=== PATIENT | female | born 1960 | race Caucasian/White ===

== ENCOUNTER → 2018-03-18 08:48 | Outpatient (POV) | payer MEDICARE, SELFPAY ==
[2018-03-18 09:02] VITALS: BP 127/41; PULSE 82; RESP 18; O2SAT 98; BMI 48.9
--- NOTE | 2018-03-18 09:09 | HMH.PAINSOAP ---
[facility] Pain Management SOAP Note Subjective:: Patient is a pleasant 57-year-old white female who presents today for follow-up. Patient currently has not spinal cord stimulator and is doing well with that she reports the pain a 3 out of 10 today. Patient is here for an adjustment today. Patient is also receiving gabapentin 300 mg 1 tab p.o. 3 times daily. Patient states that her leg pain has increased a little bit and would like to increase this medication. She denies any side effects. Patient's KRISTINA #[id number] reviewed and appropriate. Patient had some increase in pain several weeks ago however it has subsided. ROS General: no recent weight change, no fever, no sleep disturbances Respiratory: no cough, no shortness of air, no recurring pulmonary infections Cardiovascular/Peripheral Vascular: No chest pain, No palpitations, no edema, no shortness of breath. Gastrointestinal: no incontinence, normal bowel movements reported Genitourinary: no incontinence Musculoskeletal: Back pain, leg pain Psychiatric: normal mood/ affect Neurological: [denies weakness in extremities], [denies balance issues] Objective:: Physical Exam General: Alert and oriented x3, no acute distress, pleasant and cooperative, [on room air] Lungs: Resps E/U, Symmetrical chest expansion, Eyes: PERRL Musculoskeletal: Flexion and extension of lumbar spine somewhat guarded secondary to pain, deep tendon reflexes normal, strength in upper and lower extremities [5/5], [abnormal gait noted] Neurological: speech clear, automatic vulcanizing lead operator equal, no gross sensory deficits Assessment:: Degenerative disc disease lumbar spine with lumbar radiculopathy Plan:: We will have her adjusted today. We will also increase her gabapentin to 300 mg 1 tab p.o. 4 times daily and give her 3 months worth of this. We will follow-up with her in 3 months and reassess her symptoms at that time. Patient's been instructed to call the office if she has any issues prior to this. Dr. Lozano is reviewed this chart and agrees with this plan of care. This note was dictated using voice recognition software and may contain errors or omissions
--- NOTE | 2018-03-18 09:12 | P.CONS_ITS ---
[facility] Pain Management SOAP Note Subjective:: Patient is a pleasant 57-year-old white female who presents today for follow-up. Patient currently has not spinal cord stimulator and is doing well with that she reports the pain a 3 out of 10 today. Patient is here for an adjustment today. Patient is also receiving gabapentin 300 mg 1 tab p.o. 3 times daily. Patient states that her leg pain has increased a little bit and would like to increase this medication. She denies any side effects. Patient's KRISTINA #[id number] reviewed and appropriate. Patient had some increase in pain several weeks ago however it has subsided. ROS General: no recent weight change, no fever, no sleep disturbances Respiratory: no cough, no shortness of air, no recurring pulmonary infections Cardiovascular/Peripheral Vascular: No chest pain, No palpitations, no edema, no shortness of breath. Gastrointestinal: no incontinence, normal bowel movements reported Genitourinary: no incontinence Musculoskeletal: Back pain, leg pain Psychiatric: normal mood/ affect Neurological: [denies weakness in extremities], [denies balance issues] Objective:: Physical Exam General: Alert and oriented x3, no acute distress, pleasant and cooperative, [on room air] Lungs: Resps E/U, Symmetrical chest expansion, Eyes: PERRL Musculoskeletal: Flexion and extension of lumbar spine somewhat guarded secondary to pain, deep tendon reflexes normal, strength in upper and lower extremities [5/5], [abnormal gait noted] Neurological: speech clear, tray setter equal, no gross sensory deficits Assessment:: Degenerative disc disease lumbar spine with lumbar radiculopathy Plan:: We will have her adjusted today. We will also increase her gabapentin to 300 mg 1 tab p.o. 4 times daily and give her 3 months worth of this. We will follow-up with her in 3 months and reassess her symptoms at that time. Patient's been instructed to call the office if she has any issues prior to this. Dr. Lozano is reviewed this chart and agrees with this plan of care. This note was dictated using voice recognition software and may contain errors or omissions
== END ==
PROVIDERS: Family Provider Family Medicine; PCP Family Medicine; Visit Provider Clinical Nurse Specialist Family Health
DX: M51.16 Intervertebral disc disorders with radiculopathy, lumbar region (principal)
CPT/HCPCS: 99213

== ENCOUNTER → 2018-10-11 13:55 | Outpatient (POV) | payer MEDICARE, SELFPAY ==
[2018-10-11 14:24] VITALS: BP 144/63; PULSE 76; RESP 22; O2SAT 97; BMI 49.8
--- NOTE | 2018-10-11 14:49 | P.CONS_ITS ---
[facility] Pain Management SOAP Note Subjective:: Patient is a pleasant 57-year-old white female who we are treating for low back pain with lumbar radicular symptoms. She has not had/[employer] spinal cord stimulator in place. She has been doing very well with her stimulator up until recently when she started to have some increasing pain in her low back and also mid back area. She does have occasional pain in her neck and shoulder. She is on gabapentin 300 mg 3 times a day. It is been 8 months since reprogramming of her stimulator. I believe she needs reprogramming of her stimulator as her pain symptoms are very positional and may be due to excessive stimulation. We will have her meet with [email or web address] for reprogramming of her stimulator. We will follow-up with her after reprogramming. Objective:: Alert and oriented x3 no acute distress. Motor strength of the upper and lower extremities is 5/5. There is no gross sensory deficit. Assessment:: Degenerative disc disease of lumbar spine with lumbar radicular symptoms. Increasing pain in the mid back and neck. Plan:: We will have her meet with [email or web address] for reprogramming of her stimulator. We will follow-up with her after reprogramming.
== END ==
PROVIDERS: PCP Family Medicine; Visit Provider Anesthesiology
DX: M51.16 Intervertebral disc disorders with radiculopathy, lumbar region (principal)
CPT/HCPCS: 99212

== ENCOUNTER → 2018-11-05 09:36 | Outpatient (POV) | payer MEDICARE, SELFPAY ==
[2018-11-05 09:53] VITALS: BP 131/63; PULSE 78; RESP 18; O2SAT 98; BMI 51.3
--- NOTE | 2018-11-05 10:21 | HMH.PAINSOAP ---
[facility] Pain Management SOAP Note Subjective:: Patient is a pleasant 57-year-old white female who presents today for follow-up of low back pain with lumbar radicular symptoms. Patient has a [employer] spinal cord stimulator in place. The states that stimulator was about 90% effective until a month ago. The stimulator was reprogrammed last month. She had not had any programming 8 months prior to that. Patient says that she was in the shower when she felt excruciating sharp stabbing pain to her right lumbar area which now is intermittent. Nothing worsens or lessens the pain. She has tried a home stretching program, as well as anti-inflammatories. She denies having any recent imaging studies. She does state that she feels like she may have pulled something loose from the stimulator. The patient is on gabapentin 300 mg 3 times daily. She rates her pain today 4 out of 10. ROS General: no recent weight change, no fever, no sleep disturbances Respiratory: no cough, no shortness of air, no recurring pulmonary infections Cardiovascular/Peripheral Vascular: No chest pain, No palpitations, no edema, no shortness of breath. Gastrointestinal: no incontinence, normal bowel movements reported Genitourinary: no incontinence Musculoskeletal: Back pain Psychiatric: normal mood/ affect, [denies depression], [denies anxiety] Neurological: [denies weakness in extremities], [denies balance issues] Objective:: Physical Exam General: Alert and oriented x3, no acute distress, pleasant and cooperative, [on room air] Lungs: Resps E/U, Symmetrical chest expansion, Eyes: PERRL Musculoskeletal: Flexion and extension of lumbar spine somewhat guarded secondary to pain, deep tendon reflexes normal, strength in upper and lower extremities [5/5], lightly antalgic gait noted Neurological: speech clear, lean consultant equal, no gross sensory deficits Assessment:: Degenerative disc disease of lumbar spine with lumbar radicular symptoms. Plan:: We will schedule the patient for a lumbar CT scan. We will increase her gabapentin from 300 mg 1 p.o. 3 times daily to 4 times daily. We will up with her after she has her CT scan done if necessary. She has been instructed to call the office if she has any issues prior to the next appointment. She has s also been instructed to continue her home stretching program, along with her anti-inflammatories. Dr. Lozano has reviewed this note and agrees with this plan of care. This note was dictated using voice recognition software and may contain errors or omissions
== END ==
PROVIDERS: PCP Family Medicine; Visit Provider Clinical Nurse Specialist Family Health
DX: M51.16 Intervertebral disc disorders with radiculopathy, lumbar region (principal)
CPT/HCPCS: 99212

== ENCOUNTER → 2018-11-12 07:30 | Outpatient (CLI) | payer MEDICARE, SELFPAY ==
--- NOTE | 2018-11-12 07:35 | CT_ITS ---
CT lumbar spine wo con INDICATION: Severe low back pain ITS.REASON: BACK PAIN ORDERING PHYSICIAN: Jessee Lozano MD PATIENT AGE: 58 years COMPARISON: None TECHNIQUE: Axial images obtained with sagittal and coronal reformats. All CT scans at the facility use one or more dose reduction, viz: automated exposure control, ma/kV adjustment per patient size (including targeted exams where dose is matched to indication, i.e. head), or iterative reconstruction technique. FINDINGS: There is normal alignment. Degenerative disc disease T11-T12. T12-L1: Mild degenerative disc disease. L1-L2: Unremarkable. L2-L3: Unremarkable. L3-L4: Mild bulging disc along with facet and ligamentum flavum hypertrophy. There is resultant narrowing of the canal at 9 mm with moderate bilateral lateral recess narrowing and mild bilateral foraminal narrowing. Facet bony hypertrophy noted at this region. L4-L5: Degenerative disc disease with bulging disc with some minimal central calcification of the bulging disc. There is moderate facet and ligamentum flavum hypertrophy with moderate bilateral lateral recess and foraminal narrowing. There is borderline canal stenosis. L5-S1: Degenerative disc disease with bulging disc and a broad-based central disc osteophyte complex along with facet and ligamentum flavum hypertrophy. There is severe bilateral lateral recess and foraminal narrowing. The foraminal narrowing is slightly greater on the right. Incidental note made of punctate right renal calculus in the mid polar region at 2 to 3 mm. IMPRESSION: 1. Abnormal CT of the lumbar spine with multilevel lumbar spondylosis with degenerative disc disease and bulging disc along with facet and ligamentum flavum hypertrophy. Please see above for detailed description at each level. There is canal stenosis at L3-L4 with borderline canal stenosis at L4-L5 2. L3-L4: Mild bulging disc along with facet and ligamentum flavum hypertrophy. There is resultant narrowing of the canal at 9 mm with moderate bilateral lateral recess narrowing and mild bilateral foraminal narrowing. Facet bony hypertrophy noted at this region. 3. L4-L5: Degenerative disc disease with bulging disc with some minimal central calcification of the bulging disc. There is moderate facet and ligamentum flavum hypertrophy with moderate bilateral lateral recess and foraminal narrowing. There is borderline canal stenosis. 4. L5-S1: Degenerative disc disease with bulging disc and a broad-based central disc osteophyte complex along with facet and ligamentum flavum hypertrophy. There is severe bilateral lateral recess and foraminal narrowing. The foraminal narrowing is slightly greater on the right.
== END ==
PROVIDERS: PCP Family Medicine; Visit Provider Anesthesiology
DX: M54.5 Low back pain (principal)
CPT/HCPCS: 72131

== ENCOUNTER → 2018-11-26 10:43 | Outpatient (POV) | payer MEDICARE, SELFPAY ==
[2018-11-26 11:04] VITALS: BP 150/74; PULSE 74; RESP 18; O2SAT 98; BMI 49.8
--- NOTE | 2018-11-26 12:14 | HMH.PAINSOAP ---
[facility] Pain Management SOAP Note Subjective:: Patient is a pleasant 57-year-old white female who presents today for follow-up of low back pain. Patient was sent for CT scan at last appointment. She has a [employer] spinal cord stimulator in place. Patient reports that she is having continued low back pain that worsens with twisting at her waist. She does feel that this pain is different than before the stimulator. She is continuing a home stretching program, along with NSAIDs. ROS General: no recent weight change, no fever, no sleep disturbances Respiratory: no cough, no shortness of air, no recurring pulmonary infections Cardiovascular/Peripheral Vascular: No chest pain, No palpitations, no edema, no shortness of breath. Gastrointestinal: no incontinence, normal bowel movements reported Genitourinary: no incontinence Musculoskeletal: Back pain Psychiatric: normal mood/ affect, [denies depression], [denies anxiety] Neurological: [denies weakness in extremities], [denies balance issues] Objective:: Physical Exam General: Alert and oriented x3, no acute distress, pleasant and cooperative, Lungs: Resps E/U, Symmetrical chest expansion, Eyes: PERRL Musculoskeletal: Flexion and extension of [lumbar] spine somewhat guarded secondary to pain, deep tendon reflexes normal, strength in upper and lower extremities [5/5], [abnormal gait noted], positive Kemps test lumbar spine Neurological: speech clear, wood heel flap inserter equal, no gross sensory deficits Assessment:: Degenerative disc disease of lumbar spine with lumbar radicular symptoms, facet arthropathy Plan:: We will schedule the patient for medial branch blocks of L3-L4, L4-L5, and L5-S1. The patient is not on any anticoagulation therapy. She we will continue home stretching program. She is also continuing NSAIDs. We will follow-up with her after her injection and reassess her symptoms at that time. She is been instructed to call the office if she has any concerns prior to her next appointment. Tai #[id number] has been reviewed and is appropriate.
--- NOTE | 2018-11-26 12:17 | P.CONS_ITS ---
[facility] Pain Management SOAP Note Subjective:: Patient is a pleasant 57-year-old white female who presents today for follow-up of low back pain. Patient was sent for CT scan at last appointment. She has a [employer] spinal cord stimulator in place. Patient reports that she is having continued low back pain that worsens with twisting at her waist. She does feel that this pain is different than before the stimulator. She is continuing a home stretching program, along with NSAIDs. ROS General: no recent weight change, no fever, no sleep disturbances Respiratory: no cough, no shortness of air, no recurring pulmonary infections Cardiovascular/Peripheral Vascular: No chest pain, No palpitations, no edema, no shortness of breath. Gastrointestinal: no incontinence, normal bowel movements reported Genitourinary: no incontinence Musculoskeletal: Back pain Psychiatric: normal mood/ affect, [denies depression], [denies anxiety] Neurological: [denies weakness in extremities], [denies balance issues] Objective:: Physical Exam General: Alert and oriented x3, no acute distress, pleasant and cooperative, Lungs: Resps E/U, Symmetrical chest expansion, Eyes: PERRL Musculoskeletal: Flexion and extension of [lumbar] spine somewhat guarded secondary to pain, deep tendon reflexes normal, strength in upper and lower extremities [5/5], [abnormal gait noted], positive Kemps test lumbar spine Neurological: speech clear, radiologic technician equal, no gross sensory deficits Assessment:: Degenerative disc disease of lumbar spine with lumbar radicular symptoms, facet arthropathy Plan:: We will schedule the patient for medial branch blocks of L3-L4, L4-L5, and L5- S1. The patient is not on any anticoagulation therapy. She we will continue home stretching program. She is also continuing NSAIDs. We will follow-up with her after her injection and reassess her symptoms at that time. She is been instructed to call the office if she has any concerns prior to her next appointment. Tai #[id number] has been reviewed and is appropriate.
== END ==
PROVIDERS: PCP Family Medicine; Visit Provider Clinical Nurse Specialist Family Health
DX: M51.16 Intervertebral disc disorders with radiculopathy, lumbar region (principal); M54.06 Panniculitis affecting regions of neck and back, lumbar region
CPT/HCPCS: 99212

== ENCOUNTER → 2019-01-07 08:47 | Outpatient (POV) | payer MEDICARE, SELFPAY ==
[2019-01-07 09:34] VITALS: BP 114/62; PULSE 67; RESP 18; O2SAT 99; BMI 49.8
--- NOTE | 2019-01-07 09:51 | HMH.PAINSOAP ---
[facility] Pain Management SOAP Note Subjective:: Patient is a pleasant 58-year-old white female who presents today for follow-up after medial branch block. Patient got 90% relief and is doing well. Her pain is beginning to slowly return. Patient has had RFA's in the past and would like to move forward with one. Her last RFA she got 80% relief for over 6 months. She is failed other measures including medication, anti-inflammatories, physical therapy. Continuing a stretching program. ROS General: no recent weight change, no fever, no sleep disturbances Respiratory: no cough, no shortness of air, no recurring pulmonary infections Cardiovascular/Peripheral Vascular: No chest pain, No palpitations, no edema, no shortness of breath. Gastrointestinal: no incontinence, normal bowel movements reported Genitourinary: no incontinence Musculoskeletal: Back pain Psychiatric: normal mood/ affect Neurological: [denies weakness in extremities], [denies balance issues] Objective:: Physical Exam General: Alert and oriented x3, no acute distress, pleasant and cooperative, [on room air] Lungs: Resps E/U, Symmetrical chest expansion, Eyes: PERRL Musculoskeletal: Flexion and extension of lumbar spine somewhat guarded secondary to pain, deep tendon reflexes normal, strength in upper and lower extremities [5/5], slightly antalgic gait noted, positive Encarnacion test and facet loading positive bilateral lumbar spine Neurological: speech clear, human resources benefits specialist equal, no gross sensory deficits Assessment:: Degenerative disc disease lumbar spine with lumbar spondylosis and facet arthropathy lumbar spine Plan:: We will set it RFA up for the patient at L3-L4 L4-L5 L5-S1 bilaterally we will start with right-sided in 2 weeks we will do the left side. Patient is not on any anticoagulation therapy. She had good success with this therapy in the past. I will follow-up the patient after this reassess her symptoms at that time. Dr. Lozano has reviewed this note and agrees with this plan of care. This note was dictated using voice recognition software and may contain errors or omissions Pain Management Hx Components *Have you ever received a pneumonia vaccine?: Yes *Have you received a flu vaccine this season?: Yes - *Social History *Occupational Status:: other *Travel in the last 8 weeks: None
--- NOTE | 2019-01-07 09:54 | P.CONS_ITS ---
[facility] Pain Management SOAP Note Subjective:: Patient is a pleasant 58-year-old white female who presents today for follow-up after medial branch block. Patient got 90% relief and is doing well. Her pain is beginning to slowly return. Patient has had RFA's in the past and would like to move forward with one. Her last RFA she got 80% relief for over 6 months. She is failed other measures including medication, anti-inflammatories, physical therapy. Continuing a stretching program. ROS General: no recent weight change, no fever, no sleep disturbances Respiratory: no cough, no shortness of air, no recurring pulmonary infections Cardiovascular/Peripheral Vascular: No chest pain, No palpitations, no edema, no shortness of breath. Gastrointestinal: no incontinence, normal bowel movements reported Genitourinary: no incontinence Musculoskeletal: Back pain Psychiatric: normal mood/ affect Neurological: [denies weakness in extremities], [denies balance issues] Objective:: Physical Exam General: Alert and oriented x3, no acute distress, pleasant and cooperative, [on room air] Lungs: Resps E/U, Symmetrical chest expansion, Eyes: PERRL Musculoskeletal: Flexion and extension of lumbar spine somewhat guarded secondary to pain, deep tendon reflexes normal, strength in upper and lower extremities [5/5], slightly antalgic gait noted, positive Encarnacion test and facet loading positive bilateral lumbar spine Neurological: speech clear, tar kettle runner equal, no gross sensory deficits Assessment:: Degenerative disc disease lumbar spine with lumbar spondylosis and facet arthropathy lumbar spine Plan:: We will set it RFA up for the patient at L3-L4 L4-L5 L5-S1 bilaterally we will start with right-sided in 2 weeks we will do the left side. Patient is not on any anticoagulation therapy. She had good success with this therapy in the past. I will follow-up the patient after this reassess her symptoms at that time. Dr. Lozano has reviewed this note and agrees with this plan of care. This note was dictated using voice recognition software and may contain errors or omissions Pain Management Hx Components *Have you ever received a pneumonia vaccine?: Yes *Have you received a flu vaccine this season?: Yes - *Social History *Occupational Status:: other *Travel in the last 8 weeks: None
== END ==
PROVIDERS: PCP Family Medicine; Visit Provider Clinical Nurse Specialist Family Health
DX: M51.36 Other intervertebral disc degeneration, lumbar region (principal); M47.896 Other spondylosis, lumbar region; M54.06 Panniculitis affecting regions of neck and back, lumbar region
CPT/HCPCS: 99212

== ENCOUNTER 2020-06-05 14:01 | Observation (INO) | payer MEDICARE, SELFPAY ==
[2020-06-05] VITALS (14 sets, daily range): BP systolic 123–175; BP diastolic 70–99; PULSE 60–76; RESP 16–20; TEMP 36.8–37.1; O2SAT 94–98; BMI 51.3; BMI 50.3
--- NOTE | 2020-06-05 14:01 | ECG_ITS ---
APPROVED REPORT Exam: Resting ECG HR:73 bpm ECG Measurements Heart Rate 73 AXES RI 162 P 55 QRSd 80 QRS 1 QT 400 T 21 QTc 440 Conclusion Sinus rhythm with occasional premature ventricular complexes Left atrial abnormality Left ventricular hypertrophy Late R wave progression Abnormal ECG Electronically signed by : Eugene Duffy, 06/06/2020 13:36:29
--- NOTE | 2020-06-05 14:15 | XR_ITS ---
PROCEDURE: XR CHEST 2V CLINICAL HISTORY: chest pain COMPARISON: No exams were available for comparison FINDINGS: The lung gordillo are well expanded and appear clear of infiltrate. There is mild generalized cardiomegaly however the vascularity is normal and there is no pleural fluid. There are moderate multilevel degenerate changes of the thoracic spine. There is a neurostimulator electrode seen within the mid spinal canal IMPRESSION: Mild cardiomegaly, no acute chest pathology noted Dictated by: Dr. Sohail Mason MD 06/05/2020 17:18 Dr. Sohail Mason MD in [place] 06/05/2020 17:18
[2020-06-05 14:32] LABS: Basophils # 0.1 K/mm3 (0-0.2); Basophils % 1.3 % (0.1-2.0); Eosinophils # 0.2 K/mm3 (0.0-0.4); Eosinophils % 3.8 % (0.1-12.0); Hematocrit 42.1 % (37.0-47.0); Hemoglobin 13.5 g/dL (12.2-16.2); Lymphocytes # 1.7 K/mm3 (0.7-4.5); Mean Corpuscular HGB Conc 32.1 g/dL (31.8-35.4); Mean Corpuscular Hemoglobin 28.9 pg (27.0-31.2); Mean Corpuscular Volume 89.9 fl (81-99); Mean Platelet Volume 7.3 fl (7.4-10.4); Monocytes # 0.2 K/mm3 (0.1-1.0); Monocytes % 4.3 % (1.7-9.3); Neutrophils # 3.3 K/mm3 (1.8-7.8); Neutrophils % 59.6 % (37.0-80.0); Platelet Count 183 K/mm3 (142-424); Red Blood Count 4.69 M/mm3 (4.20-5.40); Red Cell Distribution Width 14.5 % (11.5-17.5); White Blood Count 5.6 K/mm3 (4.8-10.8)
--- NOTE | 2020-06-05 14:41 | HMH.EDGENADL ---
ED Disposition Clinical Impression: Angina pectoris Disposition: Admitted as Observation Condition on Discharge: Good - Critical Care Critical Care Time: No Attestation: On 06/05/20, the high probability of a clinically significant, sudden or life threatening deterioration of the following system(s) required my full and direct attention, intervention and personal management. The time I documented below is in addition to time spent performing reported procedures but includes the following listed in this critical care notation. Medical Decision Making - Medical Records Medical records reviewed: Yes: I reviewed the patient's medical records. MR Comment: Reviewed nuclear stress test report from [facility]. Possible anteroseptal ischemia seen in short axis images only, clinical correlation is advised. - Tai Inquiry Pt receiving controlled substance: No Vital Signs: 06/05/20 14:02 06/05/20 15:07 06/05/20 15:23 Temperature 98.2 F Temperature Source Oral Pulse Rate [Right] 70 70 72 Respiratory Rate 16 20 20 Blood Pressure [Right Arm] 175/90 H 173/99 H 149/91 H Blood Pressure Mean [Right Arm] 118 123 110 Blood Pressure Source [Right Arm] Automatic Cuff Automatic Cuff Blood Pressure Position [Right Arm] Sitting Supine 02 Sat by Pulse Oximetry 95 98 95 Oxygen Delivery Method Room Air Room Air Room Air 06/05/20 15:30 06/05/20 15:59 06/05/20 16:57 Temperature Temperature Source Pulse Rate [Right] 76 72 76 Respiratory Rate 20 20 20 Blood Pressure [Right Arm] 166/88 H 148/92 H 164/95 H Blood Pressure Mean [Right Arm] 114 110 118 Blood Pressure Source [Right Arm] Automatic Cuff Automatic Cuff Automatic Cuff Blood Pressure Position [Right Arm] Sitting Supine Supine 02 Sat by Pulse Oximetry 98 98 94 L Oxygen Delivery Method Room Air Room Air Room Air 06/05/20 17:03 Temperature Temperature Source Pulse Rate [Right] 70 Respiratory Rate 18 Blood Pressure [Right Arm] 149/88 H Blood Pressure Mean [Right Arm] 108 Blood Pressure Source [Right Arm] Automatic Cuff Blood Pressure Position [Right Arm] Sitting 02 Sat by Pulse Oximetry 97 Oxygen Delivery Method - Lab Data Lab Results 06/05/20 14:20: WBC 5.6, RBC 4.69, Hgb 13.5, Hct 42.1, MCV 89.9, MCH 28.9, MCHC 32.1, RDW 14.5, Plt Count 183, MPV 7.3 L, Neut % (Auto) 59.6, Lymph % (Auto) 31.0, [place] % (Auto) 4.3, Eos % (Auto) 3.8, Baso % (Auto) 1.3, Neut # (Auto) 3.3, Lymph # (Auto) 1.7, [place] # (Auto) 0.2, Eos # (Auto) 0.2, Baso # (Auto) 0.1 06/05/20 14:20: Sodium 138, Potassium 4.0, Chloride 101, Carbon Dioxide 29, Anion Gap 12.0, BUN 13, Creatinine 0.60, Estimated Creat Clear 49, Estimated GFR 102, Est GFR ( Amer) 123, Glucose 135 H, Calcium 9.6, Troponin I < 0.01 06/05/20 14:20: SARS-CoV-2 IgG Ab (Rapid) Positive A, SARS-CoV-2 IgM Ab (Rapid) Positive A Result diagrams: 06/05/20 14:20 06/05/20 14:20 Orders (Tests/Meds): ED MEDICATIONS Generic Name Dose Route Start Last Admin Trade Name Freq PRN Reason Stop Dose Admin Nitroglycerin 0.4 mg 06/05/20 14:58 06/05/20 15:39 Nitroglycerin 0.4mg Sl Tablet SL 06/06/20 14:58 0.4 mg Q5MINP PRN Administration Chest Pain Nitroglycerin 1 gm 06/05/20 16:15 Nitroglycerin 1 Gm Ointment TD 07/05/20 16:14 Q6H VERONICA Discontinued Medications Generic Name Dose Route Start Last Admin Trade Name Freq PRN Reason Stop Dose Admin Aspirin 243 mg 06/05/20 15:04 06/05/20 15:09 Aspirin 81mg Chewable Tablet PO 06/05/20 15:05 243 mg ONCE ONE Administration Nitroglycerin 1 gm 06/05/20 16:00 06/05/20 16:01 Nitroglycerin 1 Gm Ointment TD 07/05/20 15:59 1 gm Q8H VERONICA Administration ORDERS Category Date Time Status Troponin I Q3H Lab 06/05/20 17:30 Ordered Troponin I Q3H Lab 06/05/20 20:30 Ordered - Radiology Data #1 Image(s): Chest Image Reviewed: Yes I reviewed the patient's radiology image Preliminary Findings: Normal/NAD - E
[2020-06-05 14:45] LABS: Blood Urea Nitrogen 13 mg/dl (7-17); Calcium 9.6 mg/dl (8.4-10.2); Carbon Dioxide 29 mmol/L (22.0-30.0); Chloride 101 mmol/L (98-107); Creatinine Clearance Estimated 49 mL/min (50-200); Estimated Glomerular Filt Rate 102 ml/min (>60); GFR (African American) 123 ML/MIN (>60); Glucose 135 mg/dl (74-100); Sodium 138 mmol/L (136-145)
[2020-06-05 15:02] LABS: Troponin I < 0.01 ng/ml (0.00-0.034)
--- NOTE | 2020-06-05 15:12 | PC.NURSE ---
Called [facility] for stress test results.
--- NOTE | 2020-06-05 15:19 | PC.NURSE ---
AFTER THE FIRST NTG PT STILL HAVING SOME CHEST PRESSURE 2ND NTG GIVEN
--- NOTE | 2020-06-05 15:40 | PC.NURSE ---
AFTER THE 2ND NTG PT SAYS HER PRESSURE IS ALMOST GONE. 3 RD NTG GIVEN
--- NOTE | 2020-06-05 16:10 | PC.NURSE ---
DR VALENZUELA SPOKE WITH DR SOOD , HE WANTS TO ADMIT HER , DR VALENZUELA IS NOW SPEAKING WITH DR SOARES REGARDS TO ADMISSION HE HAS AGREED TO ADMIT PT
[2020-06-05 16:36] LABS: Coronavirus 19 IgG Antibody Positive (Negative); Coronavirus 19 IgM Antibody Positive (Negative)
--- NOTE | 2020-06-05 16:42 | PC.NURSE ---
Sent nasal swab for covid up to lab
[2020-06-05 16:44] LABS: Adenovirus,PCR Not Detected (NotDetected); Bordetella Pertussis Not Detected (NotDetected); Chlamydophila Pneumoniae, PCR Not Detected (NotDetected); Coronavirus 19, PCR Not Detected (NotDetected); Coronavirus 229E Not Detected (NotDetected); Coronavirus NL63 Not Detected (NotDetected); Coronavirus OC43 Not Detected (NotDetected); Coronovirus HKU1,PCR Not Detected (NotDetected); Human Metapneumovirus Not Detected (NotDetected); Influenza A, PCR Not Detected (NotDetected); Influenza AH1, 2009 Not Detected (NotDetected); Influenza AH1, PCR Not Detected (NotDetected); Influenza AH3,PCR Not Detected (NotDetected); Influenza B, PCR Not Detected (NotDetected); Mycoplasma Pneumoniae, PCR Not Detected (NotDetected); Parainfluenza 1, PCR Not Detected (NotDetected); Parainfluenza 2, PCR Not Detected (NotDetected); Parainfluenza 3, PCR Not Detected (NotDetected); Parainfluenza 4, PCR Not Detected (NotDetected); Respiratory Syncytial Virus Not Detected (NotDetected); Rhinovirus/Enterovirus Not Detected (NotDetected)
--- NOTE | 2020-06-05 18:07 | PC.NURSE ---
notified floor pt was ready for admission after negative covid swab
[2020-06-05 18:35] LABS: Troponin I < 0.01 ng/ml (0.00-0.034)
[2020-06-05 21:48] LABS: POC Glucose,Bedside 102 (70-110)
[2020-06-05 22:14] LABS: Troponin I < 0.01 ng/ml (0.00-0.034)
--- NOTE | 2020-06-05 22:34 | PC.NURSE ---
Pt c/o headache this evening. VS obtained and stable. MD notified of pt status and that she is currently wearing nitro paste. Tylenol 650 mg PO Q4 hr prn ordered. Will continue to monitor.
[2020-06-06] VITALS (10 sets, daily range): BP systolic 107–149; BP diastolic 55–86; PULSE 70–84; RESP 18–20; TEMP 36.7–37; O2SAT 94–97; BMI 50.1
--- NOTE | 2020-06-06 04:55 | PC.NURSE ---
No acute changes noted. Pt VS have remained stable. Has not c/o soa or angina this shift. Pt has c/o a headache x2. Medicated with tylenol. Pt has nitro paste on. She has ambulated to BR without difficulty. Pt is NSR on telemetry. No other concerns at this time. Will continue to monitor.
[2020-06-06 07:09] LABS: POC Glucose,Bedside 114 (70-110)
--- NOTE | 2020-06-06 09:46 | HMH.PHAVTE ---
[facility] Pharmacy VTE Monitoring - Patient Demographics Admission date: 06/05/20 Report Date: 06/06/20 Time: 09:46 Allergies/Adverse Reactions: Patient Allergies vancomycin Allergy (Severe, Verified 06/25/19:) RED MAN SYNDROME atropine [From ] Allergy (Intermediate, Verified 06/25/19:) I-HIVES cephalexin [From Keflex] Allergy (Intermediate, Verified 06/25/19:) I-RASH Gadolinium-Containing Contrast Medi Allergy (Intermediate, Verified 06/25/19:) BLOOD PRESSURE GOES UP hyoscyamine [From ] Allergy (Intermediate, Verified 06/25/19:) I-HIVES morphine Allergy (Intermediate, Verified 06/25/19:) TURNS BEAT RED, BLOOD PRESSURE GOES UP phenobarbital [From ] Allergy (Intermediate, Verified 06/25/19:) I-HIVES scopolamine [From ] Allergy (Intermediate, Verified 06/25/19:) I-HIVES Sulfa (Sulfonamide Antibiotics) Allergy (Intermediate, Verified 06/25/19:) HURT SEVERELY ALL OVER; FEELS LIKE ON FIRE Iodinated Contrast Media [IODINATED CONTRAST MEDIA - IV DYE] Allergy (Unknown, Verified 06/25/19:) RED RASH Opioids - Morphine Analogues Allergy (Verified 06/25/19:) sulfamethoxazole [From Sulfamethoprim] Allergy (Verified 06/25/19:) trimethoprim [From Sulfamethoprim] Allergy (Verified 06/25/19:) Height: 1.6 m Weight: 128.168 kg Patient Problems: Current Active Problems Angina pectoris (Acute) - VTE Risk Labs: VTE Related Lab Results Hgb 13.5 g/dL (12.2-16.2) 06/05/20 14:20 Hct 42.1 % (37.0-47.0) 06/05/20 14:20 Plt Count 183 K/mm3 (142-424) 06/05/20 14:20 BUN 13 mg/dl (7-17) 06/05/20 14:20 Creatinine 0.60 mg/dl (0.52-1.04) 06/05/20 14:20 Estimated Creat Clear 49 mL/min (50-200) 06/05/20 14:20 VTE Score: 5 VTE Risk Level: Low Risk - Prophylaxis VTE Prophylaxis Ordered?: Yes Types of VTE Prophylaxis: TEDS Knee High Location of Applied Device: Bilateral Lower Extremeties
[2020-06-06 12:57] LABS: POC Glucose,Bedside 129 (70-110)
--- NOTE | 2020-06-06 14:54 | HMH.PHAINT ---
MEDICATION RECONCILIATION COMPLETED ON PATIENT USING EXTERNAL FILL HISTORY FROM PHARMACY. -KHUSHBOO NUGENT, SHELLIED
--- NOTE | 2020-06-06 17:33 | HMH.HP ---
*Admission Date: 06/05/20 *Chief complaint: chest pain *History of present illness: Complains of chest pressure, headache, jaw pain, shortness of breath, nausea, weakness, and elevated blood pressure. Symptoms have been ongoing for 2 to 3 months. Initially started out with fatigue then developed episodes of the other symptoms. For the past 2 to 3 weeks she has been getting worse, says that she has something almost every day. She went to [place] emergency department the before for the symptoms. She had a CT scan of her head, EKG, chest x-ray. She says that they offered her admission versus outpatient follow-up with her director biology, Dr. Mercado. She chose to go home. She has seen Dr. Mercado and apparently had a stress test that showed some sort of abnormality and she is supposed to have a heart cath, but it has not yet been arranged. She says that she has a headache on the top of her head that started yesterday evening. She woke up this morning and began having left jaw pain which has persisted all day. She has heaviness in her chest, occasional sharp shooting pains in her chest, shortness of breath, nausea. Denies diaphoresis. Has occasional palpitations. She says that she has hypertension. She has diabetes. She has never had coronary artery disease diagnosed. She has had a heart cath about 10 years ago which was clear but she says that she has a leaky aortic and mitral valve. Is admitted here for further evaluation and workup. [facility] History Medical History: Reports:: Diabetes Mellitus Type 2, Gastroesophageal Reflux Disease(GERD), Hypertension, Valvular Heart Disease Denies:: Cancer, MRSA, Seizures *Have you ever received a pneumonia vaccine?: Yes *Have you received a flu vaccine this season?: Yes Other Medical History: Reports: Arthritis, Cataracts Laterality Cases: Left: Arthroscopy Knee, Bilateral: Tonsillectomy Other Surgeries: Yes: Cholecystectomy, Colonoscopy, , Hysterectomy-Total Amputation: No Fractures: No - *Social History Smoking Status: Never smoker Alcohol Intake: never *Occupational Status:: retired Housing: house *Travel in the last 8 weeks: None Family Hx:: Diabetes, Heart Attack, Hyperlipidemia, Hypertension, Cancer Review of Systems - Constitutional Reports lack of energy, Reports malaise - Eyes Denies change in vision - ENT Denies difficulty swallowing - *Cardiovascular Reports chest pain, Reports shortness of breath, Reports foot swelling, Reports radiating jaw, neck or arm pain - *Respiratory Denies chest congestion - *Gastrointestinal Denies abdominal pain - *Genitourinary Denies painful urination - *Musculoskeletal Reports stiffness - Integumentary/Breasts Denies yellowing of the skin - *Neurologic Reports headache(s), Reports weakness - Psychiatric Denies anxiety - Endocrine Denies cold intolerance - Hematologic/Lymphatic Denies easy bleeding - Allergic/Immunologic Denies hives Meds Home Medications Medication Instructions Recorded Confirmed Type Doxazosin Mesylate [Doxazosin 2mg 2 mg PO DAILY 03/18/18 06/05/20 History Tab] Estrogens, Conjugated [Premarin] 0.3 mg PO DAILY 03/18/18 06/05/20 History cloNIDine HCL [cloNIDine 0.1mg 0.1 mg PO BID 03/18/18 06/06/20 History Tablet] acetaminophen 500 mg tablet 500 mg PO Q6HP PRN 09/03/18 06/06/20 History aspirin 81 mg tablet,delayed 81 mg PO DAILY 09/03/18 06/05/20 History release dexlansoprazole 60 mg 60 mg PO DAILY 09/03/18 06/05/20 History capsule,biphase delayed release gabapentin 300 mg capsule 600 mg PO Q8H 90 Days #360 cap 09/03/18 06/06/20 History magnesium oxide 400 mg PO DAILY cap 09/03/18 06/05/20 History furosemide 40 mg tablet 40 mg PO BID tab 11/04/18 06/06/20 History quetiapine 25 mg tablet 25 mg PO HS tab 01/16/19 06/06/20 History mirabegron 50 mg tablet,extended 50 mg PO DAILY 04/10/19 06/05/20 History release 24 hr hydralazine 50 mg tablet 50
[2020-06-06 20:22] LABS: POC Glucose,Bedside 179 (70-110)
--- NOTE | 2020-06-06 20:27 | PC.NURSE ---
patient has done well this shift. no complaints of chest pain. vitals have been stable. she rings out as needed. independent in room. negative assessment. patient hoping she will have a heart cath in the am.
[2020-06-06 21:52] LABS: POC Glucose,Bedside 116 (70-110)
[2020-06-07] VITALS (15 sets, daily range): BP systolic 122–141; BP diastolic 54–84; PULSE 70–90; RESP 15–20; TEMP 36.8–37; O2SAT 90–99; BMI 50.5; BMI 50.3
--- NOTE | 2020-06-07 | IR_ITS ---
APPROVED REPORT Patient Location: Inpatient PROCEDURES Left heart catheterization Left ventriculogram Selective coronary angiogram INDICATION Recalcitrant angina pectoris Informed consent was obtained prior to the procedure. COMPLICATIONS none Estimated Blood Loss: less than 10 mls TECHNIQUE One percent lidocaine used to anesthetize the right anterior aspect of the wrist. The right radial artery was accessed via the Seldinger technique. A 6 [place] sheath was placed in the right radial artery. 2.5 mg of verapamil, 800 mcg of nitroglycerin, 1mg Lidocaine and 5000 U Heparin were given through the arterial sheath. The trap catheter was also used to perform left heart catheterization, left ventriculogram and selective coronary angiogram. At the end of the procedure the sheath was removed good hemostasis was achieved using Traclet band, patient was transferred to the postop holding area in stable condition. ANGIOGRAPHIC RESULTS The left main artery Normal The left anterior descending artery Normal The circumflex artery Normal The right coronary artery Dominant normal The ROSARIO ventriculogram reveals Normal 65% The left ventricular end-diastolic pressure 10 to 15 mmHg IMPRESSION Normal coronary arteries Normal ejection fraction Mildly elevated LVEDP PLAN 1. Evaluation of noncardiac chest pain Electronically signed by : Isaias Jaime, 06/07/2020 14:13:29
--- NOTE | 2020-06-07 04:47 | PC.NURSE ---
No acute changes noted. Pt has not c/o any soa or chest pain. VS have remained stable. She is NSR on telemetry. Pt has had shower and is NPO for possible AM heart cath. Medications administered per mar. No other concerns at this time. Will continue to monitor.
[2020-06-07 05:22] LABS: POC Glucose,Bedside 163 (70-110)
--- NOTE | 2020-06-07 07:14 | HMH.CNCARD ---
History of Present Illness Consult date: 06/07/20 Requesting physician: Allen Cuevas Consult reason: chest pain Chief complaint: chest pain Additional Medical History:: 1. DM, treated for one year (reportedly has been pre-diabetic for almost 30 yrs per patient) 2. History of gastroesophageal reflux disease A. Status post Rick fundoplication, [place], [place] B. Status post repeated esophageal dilatation and Botox injections due to esophageal stricture 3. History of tobacco use, smoked for about 8 years culminating in 3 packs/day for the last year, discontinued in 1998 4. Hypertension, treated for greater than 20 years 5. Neural stimulator and lower back with peripheral neuropathy 6. History of chest pain with exertion for the last 2 to 3 months A. Abnormal stress test, 05/[address] Mercado office History of present illness: Complains of chest pressure, headache, jaw pain, shortness of breath, nausea, weakness, and elevated blood pressure. Symptoms have been ongoing for 2 to 3 months. Initially started out with fatigue then developed episodes of the other symptoms. For the past 2 to 3 weeks she has been getting worse, says that she has something almost every day. She went to [place] emergency department the before for the symptoms. She had a CT scan of her head, EKG, chest x-ray. She says that they offered her admission versus outpatient follow-up with her engineering document control clerk, Dr. Mercado. She chose to go home. She has seen Dr. Mercado and apparently had a stress test that showed some sort of abnormality and she is supposed to have a heart cath, but it has not yet been arranged. She says that she has a headache on the top of her head that started yesterday evening. She woke up this morning and began having left jaw pain which has persisted all day. She has heaviness in her chest, occasional sharp shooting pains in her chest, shortness of breath, nausea. Denies diaphoresis. Has occasional palpitations. She says that she has hypertension. She has diabetes. She has never had coronary artery disease diagnosed. She has had a heart cath about 10 years ago which was clear but she says that she has a leaky aortic and mitral valve. Is admitted here for further evaluation and workup. The above per Dr. Cuevas Patient does confirm exertional chest discomfort with occasional associated jaw discomfort that resolves with rest. Increasing fatigue over the last couple of months to the point of being tired just cooking. Symptoms resolved with addition of NTG paste this admission. Patient was admitted for further evaluation. Troponins have returned normal x3. EKG is sinus rhythm with poor R wave progression anteriorly but no acute ST segment changes. Discussion regarding cardiac catheterization was undertaken and patient wishes to proceed here at this facility. [facility] History Medical History: Reports:: Diabetes Mellitus Type 2, Gastroesophageal Reflux Disease(GERD), Hypertension, Valvular Heart Disease Denies:: Cancer, MRSA, Seizures *Have you ever received a pneumonia vaccine?: Yes *Have you received a flu vaccine this season?: Yes Other Medical History: Reports: Arthritis, Cataracts Laterality Cases: Left: Arthroscopy Knee, Bilateral: Tonsillectomy Other Surgeries: Yes: Cholecystectomy, Colonoscopy, , Hysterectomy-Total Amputation: No Fractures: No - *Social History Smoking Status: Never smoker Alcohol Intake: never *Occupational Status:: retired Housing: house *Travel in the last 8 weeks: None Family Hx:: Diabetes, Heart Attack, Hyperlipidemia, Hypertension, Cancer Meds Home Medications Medication Instructions Recorded Confirmed Type Doxazosin Mesylate [Doxazosin 2mg 2 mg PO DAILY 03/18/18 06/05/20 History Tab] Estrogens, Conjugated [Premarin] 0.3 mg PO DAILY 03/18/18 06/05/20 History cloNIDine HCL [cloNIDine 0.1mg 0.1 mg PO BID 03/18/18 06/06/20 History Tablet] acetaminophen 500 mg tablet 500
[2020-06-07 07:20] LABS: Basophils # 0.1 K/mm3 (0-0.2); Eosinophils # 0.2 K/mm3 (0.0-0.4); Eosinophils % 2.9 % (0.1-12.0); Hematocrit 40.3 % (37.0-47.0); Hemoglobin 13.1 g/dL (12.2-16.2); Lymphocytes # 1.5 K/mm3 (0.7-4.5); Lymphocytes % 26.5 % (10-50); Mean Corpuscular HGB Conc 32.6 g/dL (31.8-35.4); Mean Corpuscular Hemoglobin 29.7 pg (27.0-31.2); Mean Corpuscular Volume 91.2 fl (81-99); Mean Platelet Volume 7.3 fl (7.4-10.4); Monocytes # 0.3 K/mm3 (0.1-1.0); Monocytes % 4.7 % (1.7-9.3); Neutrophils # 3.8 K/mm3 (1.8-7.8); Neutrophils % 64.9 % (37.0-80.0); Platelet Count 165 K/mm3 (142-424); Red Blood Count 4.42 M/mm3 (4.20-5.40); White Blood Count 5.8 K/mm3 (4.8-10.8)
[2020-06-07 07:31] LABS: Alanine Aminotransferase 24 U/L (12-78); Albumin Level 3.8 g/dl (3.5-5.0); Albumin/Globulin Ratio 1.3 (1.1-1.8); Alkaline Phosphatase 104 U/L (38-126); Anion Gap 13.6 mEq/L (5-15); Aspartate Amino Transferase 30 U/L (14-36); Bilirubin,Total 0.3 mg/dl (0.2-1.3); Blood Urea Nitrogen 10 mg/dl (7-17); Calcium 9.3 mg/dl (8.4-10.2); Carbon Dioxide 29 mmol/L (22.0-30.0); Chloride 100 mmol/L (98-107); Creatinine Clearance Estimated 47 mL/min (50-200); Estimated Glomerular Filt Rate 125 ml/min (>60); GFR (African American) 152 ML/MIN (>60); Glucose 137 mg/dl (74-100); Potassium 3.6 mmoL/L (3.5-5.1); Sodium 139 mmol/L (136-145); Total Protein,Serum 6.8 g/dl (6.3-8.2)
[2020-06-07 07:56] LABS: Chol/HDL Ratio 3.4 (1-3.5); Cholesterol 155 mg/dl (140-200); HDL Cholesterol 45 mg/dl (40-60); Triglycerides 166 mg/dl (30-150); VLDL Cholesterol 33 mg/dL (0-40)
[2020-06-07 08:07] LABS: Direct LDL Cholesterol 85.77 mg/dL (100-129)
[2020-06-07 11:45] LABS: POC Glucose,Bedside 118 (70-110)
--- NOTE | 2020-06-07 15:00 | HMH.DCSUM ---
General - General Admission date:: 06/05/20 Discharge date: 06/07/20 HPI HPI: Complains of chest pressure, headache, jaw pain, shortness of breath, nausea, weakness, and elevated blood pressure. Symptoms have been ongoing for 2 to 3 months. Initially started out with fatigue then developed episodes of the other symptoms. For the past 2 to 3 weeks she has been getting worse, says that she has something almost every day. She went to [place] emergency department the before for the symptoms. She had a CT scan of her head, EKG, chest x-ray. She says that they offered her admission versus outpatient follow-up with her drill press operator helper, Dr. Mercado. She chose to go home. She has seen Dr. Mercado and apparently had a stress test that showed some sort of abnormality and she is supposed to have a heart cath, but it has not yet been arranged. She says that she has a headache on the top of her head that started yesterday evening. She woke up this morning and began having left jaw pain which has persisted all day. She has heaviness in her chest, occasional sharp shooting pains in her chest, shortness of breath, nausea. Denies diaphoresis. Has occasional palpitations. She says that she has hypertension. She has diabetes. She has never had coronary artery disease diagnosed. She has had a heart cath about 10 years ago which was clear but she says that she has a leaky aortic and mitral valve. Is admitted here for further evaluation and workup. Hospital Course Hospital Course: Laboratory Tests 06/05/20 06/05/20 06/05/20 14:20 14:20 14:20 WBC 5.6 RBC 4.69 Hgb 13.5 Hct 42.1 MCV 89.9 MCH 28.9 MCHC 32.1 RDW 14.5 Plt Count 183 MPV 7.3 L Neut % (Auto) 59.6 Lymph % (Auto) 31.0 [place] % (Auto) 4.3 Eos % (Auto) 3.8 Baso % (Auto) 1.3 Neut # (Auto) 3.3 Lymph # (Auto) 1.7 [place] # (Auto) 0.2 Eos # (Auto) 0.2 Baso # (Auto) 0.1 Sodium 138 Potassium 4.0 Chloride 101 Carbon Dioxide 29 Anion Gap 12.0 BUN 13 Creatinine 0.60 Estimated Creat Clear 49 Estimated GFR 102 Est GFR ( Amer) 123 Glucose 135 H POC Glucose Calcium 9.6 Total Bilirubin AST ALT Alkaline Phosphatase Troponin I < 0.01 Total Protein Albumin Globulin Albumin/Globulin Ratio Triglycerides Cholesterol LDL Cholesterol Direct VLDL Cholesterol HDL Cholesterol Cholesterol/HDL Ratio Chlamy pneumoniae PCR Adenovirus (PCR) B. pertussis DNA (PCR) Coronavirus OC43 (PCR) Coronavirus HKU1 (PCR) Coronavirus 229E (PCR) SARS-CoV-2 (PCR) Coronavirus NL63 (PCR) Human Metapneumovir PCR Influenza A (H1) PCR Influ A (H1N1/09) PCR Influenza A (H3) PCR Influenza Type A (PCR) Influenza Type B (PCR) M. pneumoniae (PCR) Parainfluenza 1 (PCR) Parainfluenza 2 (PCR) Parainfluenza 3 (PCR) Parainfluenza 4 (PCR) RSV (PCR) Entero/Rhino (PCR) SARS-CoV-2 IgG Ab (Rapid) Positive A SARS-CoV-2 IgM Ab (Rapid) Positive A 06/05/20 06/05/20 06/05/20 16:40 17:53 18:29 WBC RBC Hgb Hct MCV MCH MCHC RDW Plt Count MPV Neut % (Auto) Lymph % (Auto) [place] % (Auto) Eos % (Auto) Baso % (Auto) Neut # (Auto) Lymph # (Auto) [place] # (Auto) Eos # (Auto) Baso # (Auto) Sodium Potassium Chloride Carbon Dioxide Anion Gap BUN Creatinine Estimated Creat Clear Estimated GFR Est GFR ( Amer) Glucose POC Glucose 102 Calcium Total Bilirubin AST ALT Alkaline Phosphatase Troponin I < 0.01 Total Protein Albumin Globulin Albumin/Globulin Ratio Triglycerides Cholesterol LDL Cholesterol Direct VLDL Cholesterol HDL Cholesterol Cholesterol/HDL Ratio Chlamy pneumoniae PCR Not detected Adenovirus (PCR
[2020-06-07 16:47] LABS: POC Glucose,Bedside 141 (70-110)
== END 2020-06-07 19:12 | disposition home or self-care (01) ==
LOC: ER 16:13 → 2ND 18:25
PROVIDERS: Internal Medicine; Physician Assistant; Admitting Provider Family Medicine; Emergency Provider Emergency Medicine; PCP Family Medicine; Visit Provider Family Medicine
DX: I25.110 Atherosclerotic heart disease of native coronary artery with unstable angina pectoris (principal); I10 Essential (primary) hypertension; E11.42 Type 2 diabetes mellitus with diabetic polyneuropathy; Z79.84 Long term (current) use of oral hypoglycemic drugs; Z87.891 Personal history of nicotine dependence; I38 Endocarditis, valve unspecified; Z88.8 Allergy status to other drugs, medicaments and biological substances; Z88.1 Allergy status to other antibiotic agents; Z88.2 Allergy status to sulfonamides; Z79.899 Other long term (current) drug therapy
CPT/HCPCS: 36415; 71046; 80048; 80053; 80061; 82962; 84484; 85025; 86328; 87581; 87633; 87798; 93005; 93458; 99152; 99284; C1725; C1760; C1769; G0378; J1644; Q9967

== ENCOUNTER 2021-10-30 21:19 | Emergency (ER) | payer MEDICARE, SELFPAY ==
[2021-10-30 21:18] VITALS: BP 135/60; PULSE 59; RESP 18; TEMP 36.7; O2SAT 96; BMI 46.0
[2021-10-30 21:27] VITALS: BMI 46.0
--- NOTE | 2021-10-30 21:29 | CT_ITS ---
PROCEDURE INFORMATION: Exam: CT Head Without Contrast Exam date and time: 10/30/2021 9:46 PM Age: 61 years old Clinical indication: Dizziness and other: Near syncope; Additional info: Dizzy, near syncopal episode TECHNIQUE: Imaging protocol: Computed tomography of the head without contrast. Radiation optimization: All CT scans at this facility use at least one of these dose optimization techniques: automated exposure control; mA and/or kV adjustment per patient size (includes targeted exams where dose is matched to clinical indication); or iterative reconstruction. COMPARISON: No relevant prior studies available. FINDINGS: Brain: Patchy hypoattenuation in the periventricular deep white matter bilaterally. Cerebral ventricles: Enlargement of ventricles, sulci and cisterns bilaterally. Paranasal sinuses: Mucosal thickening within paranasal sinuses but no fluid levels are evident. Mastoid air cells: Visualized mastoid air cells are well aerated. Bones/joints: Unremarkable. No acute fracture. Soft tissues: Unremarkable. Vasculature: Calcification of carotid siphons and vertebrobasilar arterial systems. IMPRESSION: 1. No evidence for acute intracranial hemorrhage, midline shift or mass effect. 2. Cortical atrophy and chronic periventricular microangiopathy. 3. Mild mucosal thickening within the paranasal sinuses. No fluid levels are evident.
--- NOTE | 2021-10-30 21:29 | ECG_ITS ---
APPROVED REPORT Exam: Resting ECG HR:58 bpm ECG Measurements Heart Rate 58 AXES AL 168 P 46 QRSd 94 QRS -5 QT 419 T 29 QTc 416 Conclusion SINUS BRADYCARDIA POSSIBLE LEFT ATRIAL ENLARGEMENT [-0.1mV P-WAVE IN V1/V2] POSSIBLE LEFT VENTRICULAR HYPERTROPHY [VOLTAGE CRITERIA PLUS LAE OR QRS WIDENING] ABNORMAL ECG UNCONFIRMED REPORT Electronically signed by : Eugene Duffy MD 10/31/2021 09:39:58
--- NOTE | 2021-10-30 21:30 | XR_ITS ---
PROCEDURE INFORMATION: Exam: XR Chest Exam date and time: 10/30/2021 9:55 PM Age: 61 years old Clinical indication: Other: Presyncope TECHNIQUE: Imaging protocol: XR of the chest. Views: 1 view. COMPARISON: CR XR CHEST 2V 06/05/2020 2:22 PM FINDINGS: Tubes, catheters and devices: Neurostimulator wires overlie the thoracolumbar junction. Acromioclavicular arthropathy. Lungs: Unremarkable. No consolidation. Pleural spaces: Unremarkable. No pleural effusion. No pneumothorax. Heart/Mediastinum: Unremarkable. No cardiomegaly. Bones/joints: See Tubes, catheters and devices finding. IMPRESSION: No evidence of acute cardiopulmonary process.
[2021-10-30 22:23] LABS: Basophils # 0.3 K/mm3 (0-0.2); Basophils % 2.6 % (0.1-2.0); Eosinophils # 0.3 K/mm3 (0.0-0.4); Eosinophils % 3.2 % (0.1-12.0); Hematocrit 43.9 % (37.0-47.0); Lymphocytes # 2.2 K/mm3 (0.7-4.5); Lymphocytes % 21.8 % (10-50); Mean Corpuscular HGB Conc 31.9 g/dL (31.8-35.4); Mean Corpuscular Hemoglobin 29.5 pg (27.0-31.2); Mean Corpuscular Volume 92.3 fl (81-99); Mean Platelet Volume 7.2 fl (7.4-10.4); Monocytes # 0.4 K/mm3 (0.1-1.0); Monocytes % 4.1 % (1.7-9.3); Neutrophils % 68.2 % (37.0-80.0); Platelet Count 288 K/mm3 (142-424); Red Blood Count 4.76 M/mm3 (4.20-5.40); White Blood Count 10.3 K/mm3 (4.8-10.8)
[2021-10-30 22:36] LABS: Alanine Aminotransferase 26 U/L (12-78); Albumin Level 3.8 g/dl (3.5-5.0); Albumin/Globulin Ratio 1.4 (1.1-1.8); Alkaline Phosphatase 97 U/L (38-126); Aspartate Amino Transferase 27 U/L (14-36); Bilirubin,Total < 0.1 mg/dl (0.2-1.3); Blood Urea Nitrogen 27 mg/dl (7-17); Carbon Dioxide 26 mmol/L (22.0-30.0); Chloride 102 mmol/L (98-107); Creatinine Clearance Estimated 48 mL/min (50-200); Estimated Glomerular Filt Rate 73 ml/min (>60); GFR (African American) 88 ML/MIN (>60); Globulin 2.7 g/dL (1.3-3.2); Glucose 111 mg/dl (74-100); Sodium 135 mmol/L (136-145); Total Protein,Serum 6.5 g/dl (6.3-8.2)
[2021-10-30 22:41] LABS: C-Reactive Protein 9.6 mg/L (0-4)
[2021-10-30 22:43] LABS: Erythrocyte Sedimentation Rate 16 mm/hr (0-30)
[2021-10-30 22:49] LABS: NT Pro Brain Natriuretic Pep. 50.4 pg/mL (0-125)
[2021-10-30 22:53] LABS: Troponin I < 0.01 ng/ml (0.00-0.034)
[2021-10-30 22:57] LABS: T4 (Thyroxine) 14.3 ug/dl (5.53-11.0)
--- NOTE | 2021-10-30 23:08 | [facility].EDDIZZ ---
ED Disposition Clinical Impression: UTI (urinary tract infection) Qualifiers: Urinary tract infection type: site unspecified Hematuria presence: without hematuria Qualified Code(s): N39.0 - Urinary tract infection, site not specified Disposition: Home, Self-Care Condition on Discharge: Good Instructions: Dizziness, Nonvertigo, DI for Urinary Tract Infection (UTI) Additional Instructions: fluids and see pcp for follow up Prescriptions: levoFLOXacin [Levaquin 500mg tab] 500 mg PO DAILY #7 tab Transmission Status: Pending to [facility] Referrals: Hussein Estrada [Primary Care Provider] - - Critical Care Critical Care Time: No Attestation: On 10/30/21, the high probability of a clinically significant, sudden or life threatening deterioration of the following system(s) required my full and direct attention, intervention and personal management. The time I documented below is in addition to time spent performing reported procedures but includes the following listed in this critical care notation. Medical Decision Making - Medical Records Medical records reviewed: Yes: I reviewed the patient's medical records. - Tai Inquiry Pt receiving controlled substance: No Vital Signs: 10/30/21 21:18 Temperature 98.0 F Temperature Source Oral Pulse Rate [Right] 59 L Respiratory Rate 18 Blood Pressure [Right Arm] 135/60 Blood Pressure Mean [Right Arm] 85 02 Sat by Pulse Oximetry 96 - Lab Data Lab results reviewed: Yes: I reviewed the patient's lab results. Lab Results 10/30/21 22:10: ESR 16 10/30/21 22:10: Troponin I < 0.01, C-Reactive Protein 9.6 H, Procalcitonin 0.050, TSH 3.03, Thyroxine (T4) 14.3 H 10/30/21 22:10: WBC 10.3, RBC 4.76, Hgb 14.0, Hct 43.9, MCV 92.3, MCH 29.5, MCHC 31.9, RDW 14.0, Plt Count 288, MPV 7.2 L, Neut % (Auto) 68.2, Lymph % (Auto) 21.8, Toole % (Auto) 4.1, Eos % (Auto) 3.2, Baso % (Auto) 2.6 H, Neut # (Auto) 7.0, Lymph # (Auto) 2.2, Toole # (Auto) 0.4, Eos # (Auto) 0.3, Baso # (Auto) 0.3 H 10/30/21 22:10: Sodium 135 L, Potassium 4.0, Chloride 102, Carbon Dioxide 26, Anion Gap 11.0, BUN 27 H, Creatinine 0.80, Estimated Creat Clear 48, Estimated GFR 73, Est GFR ( Amer) 88, Glucose 111 H, Calcium 9.0, Total Bilirubin < 0.1 L, AST 27, ALT 26, Alkaline Phosphatase 97, NT-Pro-B Natriuret Pep 50.4, Total Protein 6.5, Albumin 3.8, Globulin 2.7, Albumin/Globulin Ratio 1.4 10/31/21 00:53: Urine Color Yellow, Urine Appearance Sl cloudy, Urine pH 6.0, Ur Specific Waves <= 1.005, Urine Protein Negative, Urine Glucose (UA) Negative, Urine Ketones Negative, Urine Blood Trace-l, Urine Nitrate Negative, Urine Bilirubin Negative, Urine Urobilinogen 0.2, Ur Leukocyte Esterase 3+ A, Urine RBC 3-5, Urine WBC 50-100, Urine Bacteria Trace Result diagrams: 10/30/21 22:10 10/30/21 22:10 Orders (Tests/Meds): ED MEDICATIONS Generic Name Dose Route Start Last Admin Trade Name Freq PRN Reason Stop Dose Admin Sodium Chloride 1,000 mls @ 999 mls/hr 10/30/21 21:30 Sod Chlor 0.9% 1000ml Bag IV 10/30/21 22:30 .[id number] VERONICA Discontinued Medications Generic Name Dose Route Start Last Admin Trade Name Freq PRN Reason Stop Dose Admin Levofloxacin 750 mg 10/31/21 01:32 10/31/21 01:38 Levofloxacin 750 Mg Tablet PO 10/31/21 01:33 750 mg ONCE ONE Administration ORDERS Category Date Time Status Rapid PCR Covid and Flu A/B Stat Lab 10/30/21 21:28 Ordered Troponin I Q3H Lab 10/31/21 01:20 Received Troponin I Q3H Lab 10/31/21 03:30 Ordered Urine Culture Stat Micro 10/31/21 00:53 Received - Radiology Data #1 Image(s): Chest Image Reviewed: Yes I have reviewed radiologist's interpretation Preliminary Findings: Normal/NAD - CT Data CT Scan: Head Time Received: 01:[address] Reviewed: Yes: I have viewed the radiologist's interpretation Preliminary Findings: Normal/NAD - ECG Data Tracing #1 Arrhythmias present: sinus sonal Ischemic changes: non-specifi
[2021-10-30 23:10] LABS: Thyroid Stimulating Hormone 3.03 uIU/mL (0.465-4.68)
[2021-10-31 00:57] LABS: Appearance,Urine SL CLOUDY (Clear); Bilirubin,Urine Negative (Negative); Blood, Urine TRACE-L (Negative); Color,Urine YELLOW (Yellow); Glucose,Urine (UA) Negative (Negative); Ketones,Urine Negative (Negative); Leukocyte Esterase,Urine 3+ (Negative); Microscopic, Urine URINE MICROSCOPIC (MICROSCOPIC); Nitrate,Urine Negative (Negative); Protein,Urine Negative (Negative); Specific Gravity, Urine <= 1.005 (1.005-1.030); Urobilinogen,Urine 0.2 EU/dl (0.2)
[2021-10-31 01:01] LABS: Bacteria,Urine Trace /lpf; WBC,Urine 50-100 #/hpf (0-3)
[2021-10-31 01:49] LABS: Troponin I < 0.01 ng/ml (0.00-0.034)
[2021-10-31 02:10] VITALS: BP 130/60; PULSE 60; RESP 18; TEMP 36.7; O2SAT 99
== END 2021-10-31 02:13 | disposition home or self-care (01) ==
PROVIDERS: Emergency Provider Emergency Medicine; PCP Family Medicine
DX: N30.00 Acute cystitis without hematuria (principal); R42 Dizziness and giddiness; R06.09 Other forms of dyspnea; I10 Essential (primary) hypertension; K21.9 Gastro-esophageal reflux disease without esophagitis; E11.9 Type 2 diabetes mellitus without complications; Z88.8 Allergy status to other drugs, medicaments and biological substances; Z79.899 Other long term (current) drug therapy
CPT/HCPCS: 36415; 70450; 71045; 80053; 81001; 83880; 84145; 84436; 84443; 84484; 85025; 85651; 86140; 87086; 87088; 87186; 93005; 99284

== ENCOUNTER 2021-11-09 11:00 | Outpatient (RCR) | payer MEDICARE, SELFPAY | END 2021-11-30 07:56 | disposition home or self-care (01) | LOC: PT.CARL 11:00 | PROVIDERS: PCP Family Medicine; Visit Provider Orthopaedic Surgery Adult Reconstructive Orthopaedic Surgery | DX: M16.11 Unilateral primary osteoarthritis, right hip (principal) | CPT/HCPCS: 20560; 20561; 97010; 97110; 97140; 97163 ==